=== PATIENT | female | born 2000 ===

== ENCOUNTER → 2023-08-21 10:00 | Outpatient (BNV) | payer BC, SELFPAY | PROVIDERS: Visit Provider Psychiatry & Neurology Psychiatry | DX: F33.2 Major depressive disorder, recurrent severe without psychotic features (principal) | CPT/HCPCS: 90867; 90868 ==

== ENCOUNTER 2023-10-07 10:30 | Outpatient (RCR) | payer BC, SELFPAY ==
--- NOTE | 2023-08-04 22:20 | W.PM.TMSCONS ---
History of Present Illness General Data Date of Service: 08/04/2023 Reason for consult: TMS CONSULTATION/REFERRED DUSTY PENA YOUTH ASSOCIATE History of Present Illness The patient is a 23-year-old female with a long history of depression and anxiety who is seeking treatment with TMS after having multiple side effects over the past year with different antidepressant trials and augmentation strategies. She states she has been increasingly depressed over the past 6 months worsening but has been in a clinical depression for approximately the past 2 years. She has had worsening problems with mood intrusive anxiety difficulty with motivation ability to enjoy things and thoughts at time she would be better off but denies intent. She has had periods of social anxiety in separation anxiety in the past. She does get into increasing despair thinking whether she will ever feel okay and has had periods of time where she did felt improved by medication and things felt less difficult. She has psychotherapy for over the past 2 years she recently graduated from college she does live with her mother Currently she is only on BuSpar 10 mg twice a day Patient denies any history of manic symptoms Past Psychiatric History/Medication Trials: Patient has had multiple medication trials over the past 2 years. She has essentially been in ongoing state of depression difficulty with functioning and getting herself to meet expectations. She trial of sertraline up to 200 mg from January to 04/14/2021 discontinued secondary to fatigue and lethargy. Citalopram up to 40 mg from May 14 October 14 with no response Wellbutrin she tolerated up to 150 mg from February 11 to April 2022 and had increased anxiety and was not helpful. Effexor 75 mg had worsening headaches which she tried for 4 months Abilify 2 mg she had worsening dizziness fluoxetine from 12/12/2022 to 03/14/2023 patient had no response patient became increasingly despairing secondary to lack of response and multiple medication side effects FORMERLY [facility], [facility] Medical History (Updated 08/05/23 @ 10:53 by Salo Jovel MD) Generalized anxiety disorder Major depressive disorder, recurrent severe without psychotic features Family History: f Bipolar disorder mother with anxiety disorder Social History: Patient lives with her mother college graduate from [place] she has an only child not currently dating no children Substance History: none Trauma History: Emotional instability growing up father with bipolar disorder Mental Status Exam Mental Status Exam Patient Appearance: Well Grooomed Patient Orientation: Person, Place, Time and Situation Level of Consciousness: Awake Patient Behavior: Appropriate Mood Description: Constricted, Depressed and Apprehensive Affect Description: Constricted, Depressed and Anxious Patient Cognition Impaired: No Ability to Follow Directions: Excellent Speech Pattern: Soft-Spoken Memory Description: Intact Hallucinations: None Delusions: Not Present Thought Process: Intact Depressive Symptoms: Increased Anxiety, Diff. Making Decisions, Increased Irritability, Crying Spells, Hopelessness and Thoughts of /Suicide Judgement: Good Assessment & Plan Assessment & Plan (1) Major depressive disorder, recurrent severe without psychotic features: Status: Acute Code(s): F33.2 - Major depressive disorder, recurrent severe without psychotic features (2) Generalized anxiety disorder: Status: Acute Code(s): F41.1 - Generalized anxiety disorder Plan The patient has significant emotional distress and has been depressed and anxious in a significant way for over the past 2 years has tried multiple antidepressant trials and augmentation and other had significant side effects or no response and has become increasingly demoralized. The patient has no history of surgery above that her neck no cochlear implants no pacemaker no metallic objects no history of seizures no history donald the patient is in significant distress but can maintain her safety. She clearly is a candidate for TMS would benefit from starting treatment as soon as possible patient was given literature risks benefits and alternatives were discussed Total time managing care of this patient today 60___ minutes. Patient educated on: diagnosis, TMS and therapeutic strategies Informed Consent: understands
--- NOTE | 2023-08-21 11:27 | HO.TMSDAILY2 ---
TMS Daily Progress Note Daily TMS Progress Note Date of Service: 08/21/23 Week #: 1 Treatment #(03-24): 1 PHQ-9 Pre-Treatment (03-21): 13 PHQ-9 Most Recent (03-21): 13 Reviewed: TMS Mapping/Re-mapping completed Verification: I have reviewed the TMS Towel Folder Note and agree with the contents. The patient remains a candidate to continue TMS treatment per protocol. Assessment and Plan (1) Major depressive disorder, recurrent severe without psychotic features: Status: Acute (2) Generalized anxiety disorder: Status: Acute Plan Patient seen for initial mapping with TMS current medication includes BuSpar. Patient remains candidate TMS initial mapping completed without undue difficulty. Patient was increased up to 85% MT Tolerated treatment hopeful that will be helpful.
--- NOTE | 2023-09-22 10:50 | P.PNPS_ITS ---
TMS Daily Progress Note Daily TMS Progress Note Date of Service: 08/24/23 Week #: 1 Treatment #(03-24): 2 PHQ-9 Pre-Treatment (03-21): 13 PHQ-9 Most Recent (03-21): 13 Reviewed: TMS Tech Note Reviewed Verification: I have reviewed the TMS Director Of Quality Control Note and agree with the contents. The patient remains a candidate to continue TMS treatment per protocol. Assessment and Plan (1) Major depressive disorder, recurrent severe without psychotic features: Status: Acute (2) Generalized anxiety disorder: Status: Acute Plan needed placement adjustment cont tx plan
--- NOTE | 2023-09-22 11:18 | HO.TMSDAILY2 ---
TMS Daily Progress Note Daily TMS Progress Note Date of Service: 08/25/23 Week #: 1 Treatment #(03-24): 3 PHQ-9 Pre-Treatment (03-21): 13 PHQ-9 Most Recent (03-21): 13 Reviewed: TMS Tech Note Reviewed Verification: I have reviewed the TMS Mixer Operator Helper Hot Metal Note and agree with the contents. The patient remains a candidate to continue TMS treatment per protocol. Assessment and Plan (1) Major depressive disorder, recurrent severe without psychotic features: Status: Acute (2) Generalized anxiety disorder: Status: Acute Plan without c/o side effect cont tx plan
--- NOTE | 2023-10-05 15:58 | P.PNPS_ITS ---
TMS Daily Progress Note Daily TMS Progress Note Date of Service: 08/26/23 Week #: 1 Treatment #(03-24): 4 PHQ-9 Pre-Treatment (03-21): 13 PHQ-9 Most Recent (03-21): 13 Reviewed: TMS Tech Note Reviewed Verification: I have reviewed the TMS Noc Analyst Note and agree with the contents. The patient remains a candidate to continue TMS treatment per protocol. Assessment and Plan (1) Major depressive disorder, recurrent severe without psychotic features: Status: Acute (2) Generalized anxiety disorder: Status: Acute Plan inc MT as tolerated
--- NOTE | 2023-10-05 15:59 | P.PNPS_ITS ---
TMS Daily Progress Note Daily TMS Progress Note Date of Service: 08/28/23 Week #: 1 Treatment #(03-24): 5 PHQ-9 Pre-Treatment (03-21): 13 PHQ-9 Most Recent (03-21): 13 Reviewed: TMS Tech Note Reviewed Verification: I have reviewed the TMS Outsole Cementer Machine Note and agree with the contents. The patient remains a candidate to continue TMS treatment per protocol. Assessment and Plan (1) Major depressive disorder, recurrent severe without psychotic features: Status: Acute (2) Generalized anxiety disorder: Status: Acute Plan inc MT as tolerated
--- NOTE | 2023-10-05 16:00 | HO.TMSDAILY2 ---
TMS Daily Progress Note Daily TMS Progress Note Date of Service: 08/31/23 Week #: 2 Treatment #(03-24): 6 PHQ-9 Pre-Treatment (03-21): 13 PHQ-9 Most Recent (03-21): 14 Reviewed: TMS Tech Note Reviewed Verification: I have reviewed the TMS Airplane Cleaner Note and agree with the contents. The patient remains a candidate to continue TMS treatment per protocol. Assessment and Plan (1) Major depressive disorder, recurrent severe without psychotic features: Status: Acute Plan inc as tolerated to 120
--- NOTE | 2023-10-05 16:08 | P.PNPS_ITS ---
TMS Daily Progress Note Daily TMS Progress Note Date of Service: 09/01/23 Week #: 2 Treatment #(03-24): 7 PHQ-9 Pre-Treatment (03-21): 13 PHQ-9 Most Recent (03-21): 14 Reviewed: TMS Tech Note Reviewed Verification: I have reviewed the TMS Diagnostic Assistant Note and agree with the contents. The patient remains a candidate to continue TMS treatment per protocol. Assessment and Plan (1) Major depressive disorder, recurrent severe without psychotic features: Status: Acute Plan inc as tolerated to 120 %
--- NOTE | 2023-10-05 16:09 | P.PNPS_ITS ---
TMS Daily Progress Note Daily TMS Progress Note Date of Service: 09/02/23 Week #: 2 Treatment #(03-24): 8 PHQ-9 Pre-Treatment (03-21): 13 PHQ-9 Most Recent (03-21): 14 Reviewed: TMS Tech Note Reviewed Verification: I have reviewed the TMS It Infrastructure Architect Note and agree with the contents. The patient remains a candidate to continue TMS treatment per protocol. Assessment and Plan (1) Major depressive disorder, recurrent severe without psychotic features: Status: Acute Plan inc as tolerated to 120 % tolerating tx to this point
--- NOTE | 2023-10-05 16:10 | P.PNPS_ITS ---
TMS Daily Progress Note Daily TMS Progress Note Date of Service: 09/03/23 Week #: 2 Treatment #(03-24): 9 PHQ-9 Pre-Treatment (03-21): 13 PHQ-9 Most Recent (03-21): 14 Reviewed: TMS Tech Note Reviewed Verification: I have reviewed the TMS Manager Application Development Note and agree with the contents. The patient remains a candidate to continue TMS treatment per protocol. Assessment and Plan (1) Major depressive disorder, recurrent severe without psychotic features: Status: Acute Plan Continue plan of care tolerating treatment no adverse effects noted
--- NOTE | 2023-10-05 16:12 | P.PNPS_ITS ---
TMS Daily Progress Note Daily TMS Progress Note Date of Service: 09/04/23 Week #: 2 Treatment #(03-24): 10 PHQ-9 Pre-Treatment (03-21): 13 PHQ-9 Most Recent (03-21): 14 Reviewed: TMS Tech Note Reviewed Verification: I have reviewed the TMS Drawer In Jacquard Loom Note and agree with the contents. The patient remains a candidate to continue TMS treatment per protocol. Assessment and Plan (1) Major depressive disorder, recurrent severe without psychotic features: Status: Acute Plan Continue plan of care tolerating treatment no adverse effects noted at 120%
--- NOTE | 2023-10-05 16:17 | HO.TMSDAILY2 ---
TMS Daily Progress Note Daily TMS Progress Note Date of Service: 09/07/23 Week #: 3 Treatment #(03-24): 11 PHQ-9 Pre-Treatment (03-21): 13 PHQ-9 Most Recent (03-21): 6 Reviewed: TMS Tech Note Reviewed Verification: I have reviewed the TMS Petroleum Refining Firer Note and agree with the contents. The patient remains a candidate to continue TMS treatment per protocol. Patient has shown excellent response Assessment and Plan (1) Major depressive disorder, recurrent severe without psychotic features: Status: Acute Plan Continue plan of care tolerating treatment no adverse effects noted at 120%
--- NOTE | 2023-10-05 16:35 | P.PNPS_ITS ---
TMS Daily Progress Note Daily TMS Progress Note Date of Service: 09/08/23 Week #: 3 Treatment #(03-24): 12 PHQ-9 Pre-Treatment (03-21): 13 PHQ-9 Most Recent (03-21): 6 Reviewed: TMS Tech Note Reviewed Verification: I have reviewed the TMS Shot Coat Tender Note and agree with the contents. The patient remains a candidate to continue TMS treatment per protocol. Assessment and Plan (1) Major depressive disorder, recurrent severe without psychotic features: Status: Acute Plan Continue plan of care tolerating treatment no adverse effects noted at 120% Has improved.
--- NOTE | 2023-10-06 00:28 | HO.TMSDAILY2 ---
TMS Daily Progress Note Daily TMS Progress Note Date of Service: 09/09/23 Week #: 3 Treatment #(03-24): 13 PHQ-9 Pre-Treatment (03-21): 13 PHQ-9 Most Recent (03-21): 6 Reviewed: TMS Tech Note Reviewed Verification: I have reviewed the TMS It Business Process Architect Note and agree with the contents. The patient remains a candidate to continue TMS treatment per protocol. Assessment and Plan (1) Major depressive disorder, recurrent severe without psychotic features: Status: Acute Plan Continue plan of care tolerating treatment no adverse effects noted at 120% Has improved.
--- NOTE | 2023-10-06 00:31 | P.PNPS_ITS ---
TMS Daily Progress Note Daily TMS Progress Note Date of Service: 09/11/23 Week #: 3 Treatment #(03-24): 15 PHQ-9 Pre-Treatment (03-21): 13 PHQ-9 Most Recent (03-21): 6 Reviewed: TMS Tech Note Reviewed Verification: I have reviewed the TMS User Interface Artist Note and agree with the contents. The patient remains a candidate to continue TMS treatment per protocol. Assessment and Plan (1) Major depressive disorder, recurrent severe without psychotic features: Status: Acute Plan Continue plan of care tolerating treatment no adverse effects noted at 120% Has improved.
--- NOTE | 2023-10-06 00:32 | P.PNPS_ITS ---
TMS Daily Progress Note Daily TMS Progress Note Date of Service: 09/14/23 Week #: 4 Treatment #(03-24): 16 PHQ-9 Pre-Treatment (03-21): 13 PHQ-9 Most Recent (03-21): 6 Reviewed: TMS Tech Note Reviewed Verification: I have reviewed the TMS Perinatology Physician Note and agree with the contents. The patient remains a candidate to continue TMS treatment per protocol. Assessment and Plan (1) Major depressive disorder, recurrent severe without psychotic features: Status: Acute Plan cont plan of care
--- NOTE | 2023-10-06 00:33 | P.PNPS_ITS ---
TMS Daily Progress Note Daily TMS Progress Note Date of Service: 09/15/23 Week #: 4 Treatment #(03-24): 17 PHQ-9 Pre-Treatment (03-21): 13 PHQ-9 Most Recent (03-21): 6 Reviewed: TMS Tech Note Reviewed Verification: I have reviewed the TMS Unix System Administrator Note and agree with the contents. The patient remains a candidate to continue TMS treatment per protocol. Assessment and Plan (1) Major depressive disorder, recurrent severe without psychotic features: Status: Acute Plan cont plan of care
--- NOTE | 2023-10-06 00:38 | P.PNPS_ITS ---
TMS Daily Progress Note Daily TMS Progress Note Date of Service: 09/16/23 Week #: 4 Treatment #(03-24): 18 PHQ-9 Pre-Treatment (03-21): 13 PHQ-9 Most Recent (03-21): 6 Reviewed: TMS Tech Note Reviewed Verification: I have reviewed the TMS Universal Winding Machine Operator Note and agree with the contents. The patient remains a candidate to continue TMS treatment per protocol. Assessment and Plan (1) Major depressive disorder, recurrent severe without psychotic features: Status: Acute Plan cont plan of care
--- NOTE | 2023-10-06 00:39 | P.PNPS_ITS ---
TMS Daily Progress Note Daily TMS Progress Note Date of Service: 09/17/23 Week #: 4 Treatment #(03-24): 19 PHQ-9 Pre-Treatment (03-21): 13 PHQ-9 Most Recent (03-21): 6 Reviewed: TMS Tech Note Reviewed Verification: I have reviewed the TMS Blow Off Worker Note and agree with the contents. The patient remains a candidate to continue TMS treatment per protocol. Assessment and Plan (1) Major depressive disorder, recurrent severe without psychotic features: Status: Acute Plan cont plan of care
--- NOTE | 2023-10-06 00:41 | P.PNPS_ITS ---
TMS Daily Progress Note Daily TMS Progress Note Date of Service: 09/18/23 Week #: 4 Treatment #(03-24): 20 PHQ-9 Pre-Treatment (03-21): 13 PHQ-9 Most Recent (03-21): 6 Reviewed: TMS Tech Note Reviewed Verification: I have reviewed the TMS Formal Wear Rental Clerk Note and agree with the contents. The patient remains a candidate to continue TMS treatment per protocol. Assessment and Plan (1) Major depressive disorder, recurrent severe without psychotic features: Status: Acute Plan cont plan of care
--- NOTE | 2023-10-06 00:42 | P.PNPS_ITS ---
TMS Daily Progress Note Daily TMS Progress Note Date of Service: 09/21/23 Week #: 5 Treatment #(03-24): 21 PHQ-9 Pre-Treatment (03-21): 13 PHQ-9 Most Recent (03-21): 6 Reviewed: TMS Tech Note Reviewed Verification: I have reviewed the TMS Director Media Note and agree with the contents. The patient remains a candidate to continue TMS treatment per protocol. Assessment and Plan (1) Major depressive disorder, recurrent severe without psychotic features: Status: Acute Plan cont plan of care
--- NOTE | 2023-10-06 00:43 | P.PNPS_ITS ---
TMS Daily Progress Note Daily TMS Progress Note Date of Service: 09/22/23 Week #: 5 Treatment #(03-24): 22 PHQ-9 Pre-Treatment (03-21): 13 PHQ-9 Most Recent (03-21): 6 Reviewed: TMS Tech Note Reviewed Verification: I have reviewed the TMS Highway Patrol Pilot Note and agree with the contents. The patient remains a candidate to continue TMS treatment per protocol. Assessment and Plan (1) Major depressive disorder, recurrent severe without psychotic features: Status: Acute Plan cont plan of care
--- NOTE | 2023-10-06 00:47 | P.PNPS_ITS ---
TMS Daily Progress Note Daily TMS Progress Note Date of Service: 09/23/23 Week #: 5 Treatment #(03-24): 23 PHQ-9 Pre-Treatment (03-21): 13 PHQ-9 Most Recent (03-21): 6 Reviewed: TMS Tech Note Reviewed Verification: I have reviewed the TMS Signs And Displays Sales Representative Note and agree with the contents. The patient remains a candidate to continue TMS treatment per protocol. Assessment and Plan (1) Major depressive disorder, recurrent severe without psychotic features: Status: Acute Plan cont plan of care
--- NOTE | 2023-10-06 00:49 | P.PNPS_ITS ---
TMS Daily Progress Note Daily TMS Progress Note Date of Service: 09/24/23 Week #: 5 Treatment #(03-24): 24 PHQ-9 Pre-Treatment (03-21): 13 PHQ-9 Most Recent (03-21): 6 Reviewed: TMS Tech Note Reviewed Verification: I have reviewed the TMS Bacteriologist Soil Note and agree with the contents. The patient remains a candidate to continue TMS treatment per protocol. Assessment and Plan (1) Major depressive disorder, recurrent severe without psychotic features: Status: Acute Plan cont plan of care
--- NOTE | 2023-10-06 00:52 | P.PNPS_ITS ---
TMS Daily Progress Note Daily TMS Progress Note Date of Service: 09/25/23 Week #: 5 Treatment #(03-24): 25 PHQ-9 Pre-Treatment (03-21): 13 PHQ-9 Most Recent (03-21): 6 Reviewed: TMS Tech Note Reviewed Verification: I have reviewed the TMS Informatics Spec Note and agree with the contents. The patient remains a candidate to continue TMS treatment per protocol. Assessment and Plan (1) Major depressive disorder, recurrent severe without psychotic features: Status: Acute Plan cont plan of care
--- NOTE | 2023-10-06 11:29 | HO.TMSDAILY2 ---
TMS Daily Progress Note Daily TMS Progress Note Date of Service: 09/28/23 Week #: 6 Treatment #(03-24): 26 PHQ-9 Pre-Treatment (03-21): 13 PHQ-9 Most Recent (03-21): 6 Reviewed: TMS Tech Note Reviewed Verification: I have reviewed the TMS Project Management It Specialist Note and agree with the contents. The patient remains a candidate to continue TMS treatment per protocol. Assessment and Plan (1) Major depressive disorder, recurrent severe without psychotic features: Status: Acute Plan cont plan of care improvement noted
--- NOTE | 2023-10-06 11:30 | HO.TMSDAILY2 ---
TMS Daily Progress Note Daily TMS Progress Note Date of Service: 09/29/23 Week #: 6 Treatment #(03-24): 27 PHQ-9 Pre-Treatment (03-21): 13 PHQ-9 Most Recent (03-21): 7 Reviewed: TMS Tech Note Reviewed Verification: I have reviewed the TMS Diesel Motor Mechanic Note and agree with the contents. The patient remains a candidate to continue TMS treatment per protocol. Assessment and Plan (1) Major depressive disorder, recurrent severe without psychotic features: Status: Acute (2) Generalized anxiety disorder: Status: Acute Plan mood much improved
--- NOTE | 2023-10-06 11:32 | HO.TMSDAILY2 ---
TMS Daily Progress Note Daily TMS Progress Note Date of Service: 09/30/23 Week #: 6 Treatment #(03-24): 28 PHQ-9 Pre-Treatment (03-21): 13 PHQ-9 Most Recent (03-21): 7 Reviewed: TMS Tech Note Reviewed Verification: I have reviewed the TMS Dross Skimmer Note and agree with the contents. The patient remains a candidate to continue TMS treatment per protocol. Assessment and Plan (1) Major depressive disorder, recurrent severe without psychotic features: Status: Acute (2) Generalized anxiety disorder: Status: Acute Plan mood much improved
--- NOTE | 2023-10-06 11:33 | HO.TMSDAILY2 ---
TMS Daily Progress Note Daily TMS Progress Note Date of Service: 10/01/23 Week #: 6 Treatment #(03-24): 29 PHQ-9 Pre-Treatment (03-21): 13 PHQ-9 Most Recent (03-21): 7 Reviewed: TMS Tech Note Reviewed Verification: I have reviewed the TMS Sales Applications Engineer Note and agree with the contents. The patient remains a candidate to continue TMS treatment per protocol. Assessment and Plan (1) Major depressive disorder, recurrent severe without psychotic features: Status: Acute (2) Generalized anxiety disorder: Status: Acute Plan mood much improved will be spending work time in [facility]
--- NOTE | 2023-10-06 11:35 | HO.TMSDAILY2 ---
TMS Daily Progress Note Daily TMS Progress Note Date of Service: 10/02/23 Week #: 6 Treatment #(03-24): 30 PHQ-9 Pre-Treatment (03-21): 13 PHQ-9 Most Recent (03-21): 7 Reviewed: TMS Tech Note Reviewed Verification: I have reviewed the TMS Emergency Veterinary Assistant Note and agree with the contents. The patient remains a candidate to continue TMS treatment per protocol. Assessment and Plan (1) Major depressive disorder, recurrent severe without psychotic features: Status: Acute (2) Generalized anxiety disorder: Status: Acute Plan doing well no c/o side effects
--- NOTE | 2023-10-06 11:36 | HO.TMSDAILY2 ---
TMS Daily Progress Note Daily TMS Progress Note Date of Service: 10/06/23 Week #: 7 Treatment #(03-24): 31 PHQ-9 Pre-Treatment (03-21): 13 PHQ-9 Most Recent (03-21): 4 Reviewed: TMS Tech Note Reviewed Verification: I have reviewed the TMS Tube Draw Helper Note and agree with the contents. The patient remains a candidate to continue TMS treatment per protocol. Assessment and Plan (1) Major depressive disorder, recurrent severe without psychotic features: Status: Acute Plan much improved
--- NOTE | 2023-10-06 11:37 | HO.TMSDAILY2 ---
TMS Daily Progress Note Daily TMS Progress Note Date of Service: 10/06/23 Week #: 7 Treatment #(03-24): 32 PHQ-9 Pre-Treatment (03-21): 13 PHQ-9 Most Recent (03-21): 4 Reviewed: TMS Tech Note Reviewed Verification: I have reviewed the TMS Telephone Claims Representative Note and agree with the contents. The patient remains a candidate to continue TMS treatment per protocol. Assessment and Plan (1) Major depressive disorder, recurrent severe without psychotic features: Status: Acute Plan almost at end of tx much improved no c/o side effects
--- NOTE | 2023-10-14 11:31 | HO.TMSDAILY2 ---
TMS Daily Progress Note Daily TMS Progress Note Date of Service: 10/07/23 Week #: 7 Treatment #(03-24): 33 PHQ-9 Pre-Treatment (03-21): 13 PHQ-9 Most Recent (03-21): 4 Reviewed: TMS Tech Note Reviewed Verification: I have reviewed the TMS Language Path Note and agree with the contents. The patient remains a candidate to continue TMS treatment per protocol. Assessment and Plan (1) Major depressive disorder, recurrent severe without psychotic features: Status: Acute (2) Generalized anxiety disorder: Status: Acute Plan pt has done very well last tx completed
== END 2023-10-08 17:11 | disposition home or self-care (01) ==
LOC: HO.PTMS 10:30
PROVIDERS: Visit Provider Psychiatry & Neurology Psychiatry
DX: F33.2 Major depressive disorder, recurrent severe without psychotic features (principal); F41.1 Generalized anxiety disorder; Z79.899 Other long term (current) drug therapy
CPT/HCPCS: 90867; 90868; 99204